=== PATIENT | female | born 1975 | race Caucasian/White ===

== ENCOUNTER 2016-11-10 10:16 | Emergency (ER) | payer OTHER | END 2016-11-10 13:20 | disposition home or self-care (01) | LOC: ER 10:16 | DX: S13.9XXA Sprain of joints and ligaments of unspecified parts of neck, initial encounter (principal); V73.5XXA Driver of bus injured in collision with car, pick-up truck or van in traffic accident, initial encounter; Y92.413 State road as the place of occurrence of the external cause | CPT/HCPCS: 36415; 72040; 72072; 84703; 99070; 99283; 99284-25 ==